=== PATIENT | female | born 1995 | race Hispanic/Latino ===

== ENCOUNTER 2017-08-19 11:50 | Emergency (ER) | payer SELFPAY ==
[~2017-08-19] VITALS: Ht 149.9 cm; Wt 54.0 kg
[2017-08-19] MEDS ORDERED: ZPAK PO (16:05)
[2017-08-19 16:07] VITALS: BP 101/55
== END 2017-08-19 16:10 | disposition home or self-care (01) | DRG 153 ==
LOC: ED 11:50
DX: J06.9 Acute upper respiratory infection, unspecified (principal)

== ENCOUNTER 2024-05-13 05:21 | Emergency (ER) | payer MEDICAID ==
[~2024-05-13] VITALS: Ht 149.9 cm; Wt 75.0 kg
[~2024-05-13 05:21] MED LIST: ZPAK PO
[2024-05-13] MEDS ORDERED: SODIUM CHLORIDE 0.9% 1,000 ML IV ONE (05:35)
[2024-05-13 05:53] VITALS: BP 108/65
[2024-05-13 05:54] LABS: URINE BILIRUBIN - DIPSTICK Negative (NEGATIVE); URINE BLOOD DIPSTICK Negative (NEGATIVE); URINE GLUCOSE - DIPSTICK Negative (NEGATIVE); URINE KETONE Negative (NEGATIVE); URINE LEUK ESTERASE Negative (NEGATIVE); URINE NITRITE - DIPSTICK Negative (Negative); URINE PH 6.5 (4.5-8.0); URINE PROTEIN - DIPSTICK Negative (NEG-TRACE); URINE UROBILINOGEN - DIPSTICK 0.2 E.U./dL (0.2)
[2024-05-13 05:55] LABS: BASO% 0.2 % (0-3); EOS% 2.2 % (0-8); HEMATOCRIT 34.1 % (37.0-47.0); HEMOGLOBIN 11.4 g/dl (12.0-16.0); IMMATURE GRANULOCYTES 1.5 % (0.0-5.0); LYMPH% 20.8 % (15-41); MEAN CELL VOLUME 100.9 fL CALC (80.0-100.0); MEAN CORPUSCULAR HGB 33.7 pG CALC (26.0-32.0); MEAN CORPUSCULAR HGB CONC 33.4 g/dL CAL (32.0-36.0); MONO% 6.5 % (2-13); NEUT# 5.61 thou/uL (2.00-7.15); NEUT% 68.8 % (42-76); RED BLOOD COUNT 3.38 mill/uL (4.20-5.60); RED CELL DISTRI WIDTH 12.2 % (11.5-15.5); URINE COLOR Yellow
[2024-05-13 06:00] VITALS: BP 112/68
[2024-05-13 06:06] LABS: ALBUMIN 3.4 g/dL (3.2-5.0); BILIRUBIN, TOTAL 0.4 mg/dL (0.02-1.3); CREATININE 0.4 mg/dL (0.5-1.0); POTASSIUM 3.5 mmol/l (3.5-5.1); TOTAL PROTEIN 6.6 g/dL (6.3-8.2)
[2024-05-13 06:30] VITALS: BP 109/65
[2024-05-13 07:00] VITALS: BP 100/57
[2024-05-13 07:14] VITALS: BP 97/68
[2024-05-13 07:35] VITALS: BP 97/68
== END 2024-05-13 07:37 | disposition short-term general hospital (02) | DRG 833 ==
LOC: ED 05:21
PROVIDERS: Emergency Medicine
DX: O26.892 Other specified pregnancy related conditions, second trimester (principal); R10.2 Pelvic and perineal pain; O34.219 Maternal care for unspecified type scar from previous cesarean delivery; N85.8 Other specified noninflammatory disorders of uterus; Z3A.27 27 weeks gestation of pregnancy